=== PATIENT | male | born 1990 | race Two or more races ===

== ENCOUNTER 2021-03-04 14:30 | Outpatient (CLI) | payer OTHER ==
[~2021-03-04 14:30] MED LIST: AMOX1TAB12 PO; TYLENOL; ZANTAC
== END 2021-03-04 14:45 | disposition home or self-care (01) ==
LOC: PPH VACUNA 14:30
PROVIDERS: ATTEND Emergency Medicine Pediatric Emergency Medicine
DX: Z23 Encounter for immunization (principal)

== ENCOUNTER 2024-10-12 09:54 | Emergency (ER) | payer OTHER ==
[~2024-10-12] VITALS: Ht 180.3 cm; Wt 74.8 kg
[2024-10-12] MEDS ORDERED: ORPHENADRINE CITRATE 30 MG/ML AMPUL IM ONE (10:45)
[2024-10-12] MEDS ORDERED: KETOROLAC TROMETHAMINE 60 MG VIAL IM ONE ×2 (10:45→10:55)
[2024-10-12] MEDS ORDERED: DEXAMETHASONE SODIUM PHOSPHATE 4 MG/ML VIAL IM ONE (10:45)
[2024-10-12] MEDS ORDERED: ORPHENADRINE CITRATE 30 MG/ML AMPUL ONE (10:56)
[2024-10-12] MEDS ORDERED: DEXAMETHASONE SODIUM PHOSPHATE 4 MG/ML VIAL ONE (10:56)
[2024-10-12 11:38] LABS: BASO % 0.5 % (0.1-1.2); EOS # 0.02 (0.04-0.54); EOS % 0.3 % (0.7-7.0); HEMOGLOBIN 14.7 g/dL (13.7-17.5); LYMPH # 1.59 (1.18-3.74); LYMPH % 24.3 % (19.3-53.1); MEAN CORPUSCULAR HEMOGLOBIN 31.1 pg (25.6-32.2); MONO # 0.83 (0.24-0.82); NEUT # 4.04 (1.56-6.13); NEUT % 61.9 % (34.0-71.1); PLATELET COUNT 199 K/uL (163-369); RED BLOOD COUNT 4.73 M/uL (4.63-6.08); RED CELL DISTRIBUTION WIDTH 12.4 % (11.6-14.4)
[2024-10-12 11:40] LABS: MONO % 12.7 % (4.7-12.5)
[2024-10-12 12:42] LABS: COVID-19 AG NEGATIVE (NEGATIVE)
[2024-10-12 12:43] LABS: INFLUENZA A AG POSITIVE (NEGATIVE)
[2024-10-12] MEDS ORDERED: OSELTAMIVIR PHOSPHATE 75 MG CAPSULE PO ONE ×2 (13:15→13:16)
[2024-10-12] MEDS ORDERED: GILTUSS COUGH-118 M1 PO (13:26)
[2024-10-12] MEDS ORDERED: DICLOFENAC SODI75 MG PO (13:26)
[2024-10-12] MEDS ORDERED: OSEL75CA PO (13:26)
[2024-10-12] MEDS ORDERED: BACLOFEN10 MG PO (13:28)
== END 2024-10-12 15:32 | disposition home or self-care (01) ==
LOC: ER 10:02
PROVIDERS: Preventive Medicine Public Health & General Preventive Medicine
DX: J10.1 Influenza due to other identified influenza virus with other respiratory manifestations (principal); J45.909 Unspecified asthma, uncomplicated; M62.830 Muscle spasm of back; Z20.822 Contact with and (suspected) exposure to COVID-19; J32.0 Chronic maxillary sinusitis